=== PATIENT | male | born 1985 | race Two or more races ===

== ENCOUNTER 2022-06-05 16:24 | Emergency (ER) | payer OTHER ==
[~2022-06-05] VITALS: Ht 165.1 cm; Wt 81.6 kg
[2022-06-05] MEDS ORDERED: VISTARIL50 MG PO (18:04)
== END 2022-06-05 21:18 | disposition home or self-care (01) ==
LOC: ER 16:24
DX: R00.2 Palpitations (principal)

== ENCOUNTER 2024-09-12 22:00 | Emergency (ER) | payer OTHER ==
[~2024-09-12] VITALS: Ht 167.6 cm; Wt 87.1 kg
[~2024-09-12 22:00] MED LIST: VISTARIL50 MG PO
[2024-09-12] MEDS ORDERED: TOPROL XL50 M1 PO (22:18)
[2024-09-12] MEDS ORDERED: ONDANSETRON HCL 2 MG/ML VIAL IV ONE (23:30)
[2024-09-12] MEDS ORDERED: FAMOtidine 10 MG/ML (4ML VIAL) IV ONE (23:30)
[2024-09-12] MEDS ORDERED: 0.9 % SODIUM CHLORIDE 1,000 ML IV ONE (23:30)
[2024-09-12] MEDS ORDERED: CHOLESTYRAMINE/ASPARTAME LIGHT 4 G/PKT PACKET PO ONE (23:30)
[2024-09-13 00:18] LABS: HEMATOCRIT 49.7 % (39.0-48.0); HEMOGLOBIN 17.5 g/dL (13-16.00); MEAN CELL VOLUME 89.4 fL (80.0-100.00); MEAN CORPUSCULAR HEMOGLOBIN 31.4 pg (27.00-32.0); MEAN CORPUSCULAR HGB CONC 35.1 g/dl (32.0-36.0); PLATELET COUNT 449 K/uL (150-450); RED BLOOD COUNT 5.56 M/uL (4.00-6.00); RED CELL DISTRIBUTION WIDTH 14.4 % (11.5-14.5)
[2024-09-13] MEDS ORDERED: FAMOTIDINE/PF 20 MG/2 ML VIAL ONE (00:23)
[2024-09-13] MEDS ORDERED: ONDANSETRON HCL 2 MG/ML VIAL ONE ×2 (00:23)
[2024-09-13 00:53] LABS: ALBUMIN 4.3 gm/dL (3.4-5.0); BILIRUBIN TOTAL 0.62 mg/dL (0.3-1.2); CALCIUM 9.1 mg/dL (8.5-10.1); CREATININE SERUM 1.32 mg/dL (0.70-1.30); GFR 61.03; GLOBULINA 4.2 G/DL (2.4-3.5); POTASSIUM 3.14 mEq/L (3.5-5.1); TOTAL PROTEIN 8.5 gm/dL (6.4-8.2)
[2024-09-13 01:53] LABS: PH,URINE 5.5 (5.0-8.0); URINE APPEARANCE Clear; URINE BILIRRUBIN Negative (NEGATIVE); URINE BLOOD Negative; URINE COLOR Yellow; URINE GLUCOSE Negative (NEGATIVE); URINE LEUKOCYTE Negative; URINE NITRATE Negative; URINE PROTEIN Trace (NEGATIVE); URINE UROBILINOGEN 0.2 E.U./dl
[2024-09-13 01:56] LABS: URINE BACTERIA 6.1 uL (0.0-1933); URINE EPITHELIAL CELLS 2.3 uL (0.0-38.8); URINE WBC 6.7 uL (0.0-23.2)
[2024-09-13 02:07] LABS: URINE CAST 0.29 uL (0.0-1.40); URINE KETONE 40 (NEGATIVE)
[2024-09-13] MEDS ORDERED: LACTOBACILLUS ACIDOPHILUS 1 CAP CAP PO STA ×2 (03:23→03:27)
[2024-09-13] MEDS ORDERED: LACTOBACILLUS ACIDOPHILUS 1 CAP CAP PO ONE (03:25)
[2024-09-13] MEDS ORDERED: ZOFRAN8 MG PO (04:52)
[2024-09-13] MEDS ORDERED: INTESTINEX680 M2 PO (04:52)
[2024-09-13] MEDS ORDERED: PEPCID40 MG PO (04:52)
== END 2024-09-13 04:59 ==
LOC: ER 22:01
PROVIDERS: General Practice
DX: K52.9 Noninfective gastroenteritis and colitis, unspecified (principal); R11.2 Nausea with vomiting, unspecified; R10.9 Unspecified abdominal pain; I10 Essential (primary) hypertension